=== PATIENT | female | born 1935 | race African-American/Black ===

== ENCOUNTER 2016-12-03 07:44 | Outpatient (CLI) | payer MEDICARE ==
[~2016-12-03] VITALS: Ht 162.6 cm; Wt 95.0 kg
--- NOTE | ~2016-12-03 | HEMODYNAMI ---
PATIENT:JAZMYN DILLON MEDICAL RECORD: [id number] : 37 [id number] ADMISSION DATE: 12/03/16 Generatedon:12/03/201611:05 Patient name: JAZMYN DILLON Patient #: [id number] SSN: : 1935 Date of study: 12/03/2016 Page: Of Hemodynamic Procedure Report Patient Data Patient Demographics Procedure consent was obtained First Name: JAZMYN Gender: Female Last Name: WILMA : 1935 Patient #: [id number] Age: 81 year(s) Race: Black Additional ID: [id number] Contact details [address]: [address] [place] [address] [place] State: [place] City: [place] Zip code: [address] Past Medical History Allergies: No known allergies Admission Admission Data Admission Date: 12/03/2016 Admission Time: 7:44 Weight (lbs.): 209 Weight (kg.): 94.8 Procedure Procedure Types Cath Procedure Peripheral Cath Diagnostic Procedure Cath Peripheral Fistula Fistulagram Single Access Procedure Description Procedure Date Procedure Date: 12/03/2016 Procedure Start Time: 10:11 Procedure Staff Name Function Shashank Mason MD Performing Physician Avni Goodman RT Scrub Marilyn Parnell RN Nurse Jenn Felipe RN Nurse Genesis Cabrera RT Staff Research Associate Genesis Cabrera RT Monitor Procedure Data Cath Procedure Fluoroscopy Diagnostic fluoroscopy Total fluoroscopy Time: 8.9 time: 8.9 min min Diagnostic fluoroscopy Total fluoroscopy dose: 282 dose: 282 mGy mGy Contrast Material Contrast Material Type Amount (ml) Isovue 300 95 Diagnostic catheters Device Type Used For End Catheter Placement Merit Impress KA2 5Fr 65CM catheter Merit UHF Pigtail VESSEL SIZING 5Fr 65CM catheter Procedure Medications Medication Administration Route Dosage Fentanyl I.V. 50 mcg Versed I.V. 1 mg Heparin Bolus I.V. 3000 units Fentanyl I.V. 50 mcg Fentanyl I.V. 50 mcg Versed I.V. 1 mg Hemodynamics Rest Heart Rate: 79 (bpm) Snapshots Pre Cath Intra NCS Post Cath Vital Signs Time Heart Resp SPO2 NIBP (mmHg) Rhythm Pain Sedation Rate (ipm) (%) Status Level (bpm) 9:48:39 12 Measuring NSR 0 (11) 10(A) , No pain 9:49:42 89 19 93 Time NSR 0 (11) 10(A) Exceeded , No pain 9:53:58 82 20 96 173/89(124) NSR 0 (11) 10(A) , No pain 9:58:20 52 28 97 174/76(119) NSR 0 (11) 10(A) , No pain 10:02:41 81 15 98 169/78(134) NSR 0 (11) 10(A) , No pain 10:06:56 82 13 95 167/83(126) NSR 0 (11) 10(A) , No pain 10:11:17 93 14 99 154/71(108) NSR 0 (11) 9(A) , No pain 10:15:37 79 15 100 141/55(95) NSR 0 (11) 9(A) , No pain 10:19:49 75 12 99 149/64(100) NSR 0 (11) 9(A) , No pain 10:24:05 74 16 100 143/66(104) NSR 0 (11) 9(A) , No pain 10:28:17 76 13 99 139/70(99) NSR 0 (11) 9(A) , No pain 10:32:31 73 15 100 137/59(96) NSR 0 (11) 9(A) , No pain 10:36:43 73 14 100 134/64(87) NSR 0 (11) 9(A) , No pain 10:40:53 75 16 100 140/70(112) NSR 0 (11) 9(A) , No pain 10:45:02 74 15 100 152/70(104) NSR 0 (11) 9(A) , No pain 10:49:15 92 14 100 168/77(125) NSR 0 (11) 9(A) , No pain 10:53:36 91 15 100 147/67(107) NSR 0 (11) 9(A) , No pain 10:57:50 80 14 100 150/70(93) NSR 0 (11) 9(A) , No pain 11:02:09 75 14 100 151/60(104) NSR 0 (11) 9(A) , No pain Medications Time Medication Route Dose Verified Delivered Reason Notes Effe ctiveness by by 10:07:35 Fentanyl I.V. 50 Marilyn Marilyn for sedation mcg Parmjit Parnell RN RN 10:07:40 Versed I.V. 1 mg Marilyn Marilyn for sedation Parmjit Parmjit RN RN 10:25:02 Heparin I.V. 3000 Marilyn Marilyn for Bolus units Parmjit Parnell anticoagulation RN RN 10:28:55 Fentanyl I.V. 50 Marilyn Marilyn for sedation mcg Parmjit Parnell RN RN 10:45:06 Fentanyl I.V. 50 Marilyn Marilyn for sedation mcg Parmjit Sandovalaway RN RN 10:45:17 Versed I.V. 1 mg Marilyn Marilyn for sedation Parmjit Parnell RN export documents clerk Log Time Note 9:31:39 Use device set IR Diagnostic 9:33:09 Patient Weight : 209 kg 9:33:24 Cook BENTSON 145cm guide wire opened to sterile field. 9:33:25 Micropuncture VSI 4FR kit opened to sterile field. 9:33:26 St Kwasi 6FR 5cm sheath opened to sterile field. 9:33:27 Sterile Angiographic Pack opened to sterile field. 9:33:28 Bag Decanter opened to sterile field. 9:44:39 Time tracking: Regular hours 9:44:55 Plan of Care:Hemodynamics will remain stable., Cardiac rhythm will remain stable., Comfort level will be maintained., Respiratory function will remain adequate., Patient/ family verbilizes understanding of procedure., Procedure tolerated without complication., Recovers from procedure without complications.. 9:45:01 Patient received from Outpatients to IR Alert and oriented. Tansferred to table in Supine position. 9:45:03 Correct patient and procedure confirmed by team. 9:45:05 Signed procedure consent form obtained from patient. 9:45:07 - 9:45:15 H&P Date Dictated: 12/03/2016 Within 30 days and on chart.. 9:45:17 Pre-procedure instructions explained to patient. 9:45:18 Pre-op teaching completed and patient verbalized understanding. 9:45:22 Family unavailable. 9:45:24 Patient NPO since Midnight. 9:45:40 Patient allergic to No known allergies 9:45:43 Is the patient allergic to Iodine/contrast media? No. 9:45:52 Patient diabetic? Yes. 9:45:59 - 9:46:01 ----Pre-sedation anethsthesia assessment.---- 9:46:04 Previous problem with sedation/anesthesia? No ? 9:46:08 Snore? Yes 9:46:09 Sleep apnea? Yes 9:46:12 Deviated septum? No 9:46:14 Opens mouth fully? Yes 9:46:16 Sticks out tongue? Yes 9:46:22 Airway obstruction? No ? 9:46:26 Dentures? No ? 9:46:28 - 9:46:49 ECG and BP/O2 sat monitors applied to patient. 9:46:50 Vital chart was started 9:46:59 Full Disclosure recording started 9:58:58 - 9:59:19 Terumo 5FR ANGLED 65CM glide catheter opened to sterile field. 9:59:20 Cook [facility] .035 145 glide wire opened to sterile field. 10:04:35 IV patent on arrival in left forearm with 0.9% NaCl at [facility]. 10:06:21 Right Arm area was prepped with chlora-prep and draped in sterile fashion 10:06:24 Alarms reviewed by R. N. 10:06:25 Sharps counted by scrub and verified by R.N. 10:06:33 - 10:06:59 Baseline sample Acquired. 10:07:07 Physician arrived 10:07:29 --------ALL STOP TIME OUT------ 10:07:30 Final Timeout: patient, procedure, and site verified with staff and physician. All members of the team are in agreement. 10:07:35 Fentanyl 50 mcg I.V. was administered by Marilyn Parnell RN; for sedation; 10:07:40 Versed 1 mg I.V. was administered by Marilyn Parnell RN; for sedation; 10:07:42 Physical assessment completed. ASA score P 3 - A patient with severe systemic disease as per Shashank Mason MD. 10:07:48 Sedation plan: IV Moderate Sedation Versed, Fentanyl 10:11:01 Procedure started. 10:11:09 Local anesthetic to right arm with Lidocaine 1% by Shashank Mason MD.INITIAL ACCESS ONLY 10:16:00 Venous access obtained using ultrasound guidance. 10:23:27 Cook MARQUEZ 180 guide wire opened to sterile field. 10:23:39 Terumo 7Fr [place] Destination Sheath opened to sterile field. 10:23:50 A [employer] KA2 5Fr 65CM catheter was advanced over the wire and used for . 10:25:02 Heparin Bolus 3000 units I.V. was administered by Marilyn Parnell RN; for anticoagulation; 10:25:51 BasixTOUCH Inflation Syringe opened to sterile field. 10:27:57 Inflation number: 1 A Cordis Powerflex Pro 5.0 x 40 x 80cm balloon was prepped and advanced across the Undefined1, then inflated to 15 SHARON for 0:10 (min:sec). 10:28:55 Fentanyl 50 mcg I.V. was administered by Marilyn Parnell RN; for sedation; 10:35:23 A [facility] Pigtail VESSEL SIZING 5Fr 65CM catheter was advanced over the wire and used for . 10:39:52 Cordis SMART 12 X 40 X 80 stent was deployed across Undefined1 . 10:42:24 Cook MARQUEZ 260 guide wire opened to sterile field. 10:43:12 Inflation number: 2 A Cordis Powerflex Pro 12.0 X 40 X 80cm balloon was prepped and advanced across the Undefined1, then inflated to 8 SHARON for 0:10 (min:sec). 10:45:06 Fentanyl 50 mcg I.V. was administered by Marilyn Parnell RN; for sedation; 10:45:17 Versed 1 mg I.V. was administered by Marilyn Parnell RN; for sedation; 10:50:24 Procedure ended.(Physican Out) 10:56:57 Fluoroscopy time 08.90 minutes. 10:57:15 Fluoroscopy dose: 282 mGy 10:57:15 Flurop Dose total: 282 10:57:20 Contrast amount:Isovue 300 95ml. 10:57:23 Sharps counted by scrub and verified by R.N. 10:57:25 Procedure and supply charges have been captured, reviewed, submitted an d are correct. 11:05:21 Vital chart was stopped Intervention Summary Intervention Notes Time ActionType Lesion and Equipment Action# Pressure Duration Attributes Used 10:27:57 Inflate Undefined1 Cordis 1 15 00:10 balloon Powerflex Pro 5.0 x 40 x 80cm balloon 10:39:52 Deploy self Undefined1 Cordis 1 expanding SMART 12 stent X 40 X 80 stent 10:43:12 Inflate Undefined1 Cordis 2 8 00:10 balloon Powerflex Pro 12.0 X 40 X 80cm balloon Device Usage Item Name Manufacture Quantity Catalog Hospital Part Current Minima l Lot# / Number Charge Number Stock Stock Serial# Code [facility] 1 [id number] 333282 5 [id number] 145cm guide wire Micropuncture VSI VASCULAR 1 7266V 302765 265510 5 V[address] 4FR kit SOL[address] Kwasi 6FR St Kwasi 1 [id number] 101747 726276 5 2273687 5cm sheath Sterile Cardinal 1 [id number] 600162 344630 5 Angiographic Health Pack Bag Decanter Microtek 1 2001S 651925 96676 047878 5 Medical Inc. Terumo 5FR Terumo 1 CG507 994976 457289 5 ANGLED 65CM glide catheter Cook [employer] 1 [id number] 324972 402769 5 [id number] ROADRUNNER .035 145 glide wire Cook MARQUEZ Cook Medical 1 L45644 136943 507239 5 6269113 180 guide wire Terumo 7Fr Terumo 1 RSR04 848854 545147 922175 5 [place] Destination Sheath Merit Impress Merit 1 [id number] 461086 625875 5 KA2 5Fr 65CM Medical catheter BasixTOUCH Merit 1 BZ1983 206675 783444 094516 5 Inflation Medical Syringe Cordis Cardinal 1 [id number] 438112 973390 400124 5 Powerflex Pro Health 5.0 x 40 x 80cm balloon Merit UHF Merit 1 [id number] 388809 226700 5 Pigtail Medical VESSEL SIZING 5Fr 65CM catheter Cordis SMART Cardinal 1 [id number] 364158 107887 322939 5 [id number] 12 X 40 X 80 Health stent Cook MARQUEZ [place] [facility] 1 [id number] 554663 715560 5 3323759 260 guide wire Cordis Cardinal 1 [id number] 190896 654234 717830 5 Powerflex Pro Health 12.0 X 40 X 80cm balloon Signature Audit [place] Stage Time Signature Unsigned Intra-Procedure 12/03/2016 Genesis Cabrera 11:05:18 AM RT(R) Signatures Monitor : Genesis Cabrera RT Signature : Date : Time : [facility] [address] [place] [address]
[2016-12-03] MEDS ORDERED: LEVEMIR100 U/M1 SC (08:41)
[2016-12-03] MEDS ORDERED: HUMULIN R100 U/ML SC (08:41)
[2016-12-03] MEDS ORDERED: SINGULAIR10 MG PO (08:42)
[2016-12-03] MEDS ORDERED: MIDODRINE HCL5 MG PO (08:42)
[2016-12-03] MEDS ORDERED: LEVOXYL25 MCG PO (08:43)
[2016-12-03] MEDS ORDERED: PACERONE200 MG PO (08:43)
[2016-12-03] MEDS ORDERED: NEPHRO-VITE RX1 TAB PO (08:44)
[2016-12-03] MEDS ORDERED: IPRAT-ALBUT 0.5-3 ML UPD (08:44)
[2016-12-03] MEDS ORDERED: ACIDOPHILUS LAC1 CAP PO (08:45)
[2016-12-03] MEDS ORDERED: ASMANEX0.24 GM INH (08:45)
[2016-12-03 08:59] VITALS: BP 152/89; Ht 162.6 cm; Wt 95.0 kg
[2016-12-03 09:32] LABS: BASOPHILS 0.2 % (0.0-2.0); EOSINOPHILS 5.1 % (0-7); HEMATOCRIT 31.1 % (36.0-48.0); HEMOGLOBIN 9.3 g/dL (12-16); IMMATURE GRANULOCYTES 0.2 % (0-5); LYMPHOCYTES 16.5 % (15-50); MCH 29.1 pg (26.0-34.0); MCHC 29.9 g/dL (31.0-37.0); MCV 97.2 fL (80.0-100.0); MEAN PLATELET VOLUME 9.8 fL (7.4-10.4); MONOCYTES 9.2 % (2-11); NEUTROPHILS 68.8 % (40-80); PLATELET COUNT 264 10x3/uL (130-400); RDW 16.7 % (11.5-14.5); WBC 5.5 10x3/uL (4.8-10.8)
[2016-12-03 09:40] LABS: ANION GAP 13.3 mmol/L (8-16); CALCIUM 9.3 mg/dL (8.5-10.1); CREATININE - SERUM 4.6 mg/dL (0.6-1.3); POTASSIUM - SERUM 3.3 mmol/L (3.5-5.1)
[2016-12-03 09:41] LABS: APTT 35.6 SECONDS (22.8-39.4); PROTIME 13.1 SECONDS (11.6-15.0)
--- NOTE | 2016-12-03 11:25 | NUR ---
RECEIVED FROM IR. VITAL SIGNS STABLE. DENIES PAIN. BRUIT AUDIBLE IN RIGHT ARM. DIET GIVEN. SEE FREQUENT VITAL SIGN SHEET.
--- NOTE | 2016-12-03 13:00 | NUR ---
DISCHARGED HOME VIA .
== END 2016-12-03 13:00 | disposition home or self-care (01) ==
LOC: D.OPS 07:44 → D.RAD 09:30 → D.OPS 09:30
PROVIDERS: Radiology Diagnostic Radiology
DX: T82.868A Thrombosis due to vascular prosthetic devices, implants and grafts, initial encounter (principal); N18.6 End stage renal disease; Z99.2 Dependence on renal dialysis

== ENCOUNTER 2017-04-14 15:33 | Inpatient (IN) | payer MEDICARE ==
[~2017-04-14] VITALS: Ht 162.6 cm; Wt 92.7 kg
--- NOTE | ~2017-04-14 | HEMODYNAMI ---
PATIENT:JAZMYN DILLON MEDICAL RECORD: [id number] : 37 LOCATION:[place] [address] ADMISSION DATE: 04/14/17 Generatedon:04/19/201715:05 Patient name: JAZMYN DILLON Patient #: [id number] SSN: : 1935 Date of study: 04/19/2017 Page: Of Hemodynamic Procedure Report Patient Data Patient Demographics Procedure consent was obtained First Name: JAZMYN Gender: Female Last Name: WILMA : 1935 Patient #: [id number] Age: 82 year(s) Race: Black Additional ID: [id number] Contact details [address]: [address] [place] [address] [place] State: [place] City: [place] Zip code: [address] Past Medical History Allergies: No known allergies Admission Admission Data Admission Date: 04/14/2017 Admission Time: 15:33 Room #: [facility] Procedure Procedure Types Cath Procedure Peripheral Cath Diagnostic Procedure Miscellaneous Procedure Description Procedure Date Procedure Date: 04/19/2017 Procedure Start Time: 14:12 Procedure Staff Name Function Chon Carter MD Performing Physician Nadine Vargas RT Scrub Marilyn Parnell RN Nurse Avni Goodman RT Monitor Procedure Data Cath Procedure Fluoroscopy Diagnostic fluoroscopy Total fluoroscopy Time: 3.6 time: 3.6 min min Diagnostic fluoroscopy Total fluoroscopy dose: 376 dose: 376 mGy mGy Contrast Material Contrast Material Type Amount (ml) Isovue 300 85 Hemodynamics Rest Heart Rate: 70 (bpm) Snapshots Pre Cath Intra NCS Post Cath Vital Signs Time Heart Resp SPO2 NIBP Rhythm Pain Sedation Rate (ipm) (%) (mmHg) Status Level (bpm) 13:55:10 116 20 No Cuff NSR 0 (11) 10(A) , No pain 13:59:02 81 14 100 90/63(78) NSR 0 (11) 10(A) , No pain 14:02:55 103 12 100 108/72(96) NSR 0 (11) 10(A) , No pain 14:07:03 77 12 100 125/48(91) NSR 0 (11) 10(A) , No pain 14:12:02 146 12 94 Measuring NSR 0 (11) 10(A) , No pain 14:12:31 75 13 96 57/31(43) NSR 0 (11) 10(A) , No pain 14:17:30 75 15 Measuring NSR 0 (11) 10(A) , No pain 14:18:35 75 12 91 93/40(65) NSR 0 (11) 10(A) , No pain 14:22:41 73 14 100 102/39(67) NSR 0 (11) 10(A) , No pain 14:26:49 72 11 100 93/39(69) NSR 0 (11) 10(A) , No pain 14:30:53 71 13 100 91/36(64) NSR 0 (11) 10(A) , No pain 14:34:57 70 11 100 87/28(58) NSR 0 (11) 10(A) , No pain 14:38:58 77 10 100 88/35(63) NSR 0 (11) 10(A) , No pain 14:43:00 76 11 100 89/32(58) NSR 0 (11) 10(A) , No pain 14:47:04 77 16 100 95/34(63) NSR 0 (11) 10(A) , No pain 14:51:07 77 14 100 100/36(70) NSR 0 (11) 10(A) , No pain 14:55:15 78 14 100 107/38(70) NSR 0 (11) 10(A) , No pain 14:59:23 79 14 100 118/47(83) NSR 0 (11) 10(A) , No pain 15:03:37 79 16 No Cuff NSR 0 (11) 10(A) , No pain Procedure Log Time Note 13:39:50 Avni Goodman RT (R) (CV) sent for patient. Start room use. 13:39:59 Time tracking: Regular hours 13:40:04 Plan of Care:Hemodynamics will remain stable., Cardiac rhythm will remain stable., Comfort level will be maintained., Respiratory function will remain adequate., Patient/ family verbilizes understanding of procedure., Procedure tolerated without complication., Recovers from procedure without complications.. 13:40:10 Patient received from Med II to IR Alert and oriented. Tansferred to table in Supine position. 13:40:11 Correct patient and procedure confirmed by team. 13:40:13 Signed procedure consent form obtained from patient. 13:40:14 ECG and BP/O2 sat monitors applied to patient. 13:40:15 Full Disclosure recording started 13:40:16 - 13:40:20 H&P Date Dictated: 04/19/2017 Within 30 days and on chart.. 13:40:20 Pre-procedure instructions explained to patient. 13:40:21 Pre-op teaching completed and patient verbalized understanding. 13:40:22 Family unavailable. 13:40:24 Patient NPO since Midnight. 13:40:26 - 13:40:42 SEE ANESTHESIA NOTE FOR PRE PROCDURE TIVA 13:40:44 - 13:40:48 Use device set IR Diagnostic 13:40:49 Bag Decanter opened to sterile field. 13:40:52 Sterile Angiographic Pack opened to sterile field. 13:54:20 Vital chart was started 13:54:21 Baseline sample Acquired. 13:59:09 RUY HERE FROM ANESTHESIA 14:09:10 Sharps counted by scrub and verified by R.N. 14:09:18 Right Arm area was prepped with chlora-prep and draped in sterile fashion 14:: Physician arrived 14::53 --------ALL STOP TIME OUT------ 14::53 Final Timeout: patient, procedure, and site verified with staff and physician. All members of the team are in agreement. 14:10:55 Right Arm site verified by team. 14:11:02 Physical assessment completed. ASA score P 4 - A patient with severe systemic disease that is a constant threat to life as per Chon Carter MD. 14:11:26 Sedation plan: IV Moderate Sedation Propofol 14:11:40 Procedure started. 14:12:06 Local anesthetic to right arm with Lidocaine 1% by Chon Carter MD.INITIAL ACCESS ONLY 14:13:45 Ophis Vape DOC .035 guide wire opened to sterile field. 14:13:45 Micropuncture VSI 4FR kit opened to sterile field. 14:13:46 Terumo 5FR ANGLED 65CM glide catheter opened to sterile field. 14:13:47 Terumo 5Fr Candor Sheath opened to sterile field. 14:18:53 Terumo 6Fr Candor Sheath opened to sterile field. 14:21:11 Terumo ANGLE 180L glide wire opened to sterile field. 14:21:18 Terumo TORQUE DEVICE PLASTIC .038 opened to sterile field. 14:24:36 BasixTOUCH Inflation Syringe opened to sterile field. 14:24:55 Cook MARQUEZ 180 guide wire opened to sterile field. 14:26:50 Inflation number: 1 A Cordis Powerflex Pro 8.0 x 40 x 80cm balloon was prepped and advanced across the Undefined1, then inflated 14:34:45 Inflation number: 2 A Cordis Powerflex Pro 10.0 x 40 x 80cm balloon was prepped and advanced across the Undefined1, then inflated 14:52:21 3.0 Vicryl Single Pack [id number] opened to sterile field. 14:54:54 Procedure ended.(Physican Out) 14:55:05 Fluoroscopy time 03.60 minutes. 14:55:10 Fluoroscopy dose: 376 mGy 14:55:10 Flurop Dose total: 376 14:56:22 Sharps counted by scrub and verified by R.N. 14:56:23 Insertion/operative site no bleeding no hematoma. 14:56:29 Post-op/insertion site Right Fistula dressed using a 4 x 4 and Tegaderm . 14:56:37 Post right arm:stable 14:56:41 Post-procedure physical assessment completed. ASA score P 4 - A patient with severe systemic disease that is a constant threat to life as per Chon Carter MD. 14:56:51 Post procedure rhythm: unchanged. 14:56:52 Patient needs reinforcement of post procedure teaching. 14:56:53 Procedure and supply charges have been captured, reviewed, submitted an d are correct. 14:57:07 SEE ANESTHESIA NOTE FOR POST PROCEDURE TIVA 14:59:12 Contrast amount:Isovue 300 85ml. 15:04:16 Report given to Med II. 15:04:20 Patient transfered to Med II with Bed. 15:05:15 Vital chart was stopped Intervention Summary Intervention Notes Time ActionType Lesion and Equipment Action# Pressure Duration Attributes Used 14:26:50 Inflate Undefined1 Cordis 1 0 00:00 balloon Powerflex Pro 8.0 x 40 x 80cm balloon 14:34:45 Inflate Undefined1 Cordis 2 0 00:00 balloon Powerflex Pro 10.0 x 40 x 80cm balloon Device Usage Item Name Manufacture Quantity Catalog Hospital Part Current Minima l Lot# / Number Charge Number Stock Stock Serial# Code Bag [facility] Microtek 1 2002S [id number] 47992 441529 5 Medical Inc. Sterile Cardinal 1 [id number] 341874 379515 5 Angiographic Health Pack Cook DOC .035 Cook Medical 1 [id number] 518532 333440 5 guide wire Micropuncture VSI VASCULAR 1 7266V 715375 246452 5 VSI 4FR kit SOLUTIONS Terumo 5FR Terumo 1 CG507 326220 503545 5 ANGLED 65CM glide catheter Terumo 5Fr Terumo 1 [id number] 591151 950078 571943 40 [place] Sheath Terumo 6Fr Terumo 1 [id number] 519853 665523 458374 40 Candor Sheath Terumo ANGLE Terumo 1 [id number] 552074 109582 385453 5 180L glide wire Terumo TORQUE [place] 1 TD01 867270 953818 525208 5 DEVICE Scientific PLASTIC .038 BasixTOUCH Merit 1 [id number] 379199 971969 541629 5 Inflation Medical Syringe Cook [facility] 1 X30051 009842 812521 5 [id number] 180 guide wire Cordis Cardinal 1 [id number] 175513 011521 932850 5 Powerflex Pro Health 8.0 x 40 x 80cm balloon Cordis Cardinal 1 [id number] 371620 532641 458160 5 Powerflex Pro Health 10.0 x 40 x 80cm balloon 3.0 Vicryl Ethicon 1 [id number] 813000 547184 844767 5 Single Pack [id number] Signature Audit [place] Stage Time Signature Unsigned Intra-Procedure 04/19/2017 Avni 3:05:12 PM Maxine RT (R) (CV) Signatures Monitor : Avni Signature : Maxine RT Date : Time : [place] [address] [place] [address]
--- NOTE | ~2017-04-14 | DS ---
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 She was admitted and seen by interventional radiology. She was to have her procedure, but unfortunately was given apple juice by the nurse and had to have her procedure canceled until Wednesday. She had a 10-mm balloon angioplasty and her access is open and will use it prior to discharge. She is alert and oriented times 2, does note that she transfers and dialyzes at the [facility] on Mondays, Wednesdays and Fridays. Did get the year correct but the day, she was unaware of the specific day but it was March and she has been in the hospital over the weekend. Normocephalic, atraumatic, regular rhythm, S1 and S2, access was open with good thrill. Trace lower extremity edema. We will continue her home medications as previous to admission with no medical changes and they are reviewable in the chart. We will contact her dialysis facility and the dialysis nurse today and we will remove her Trialysis catheter as well. Stable on discharge. Renal diet. TRANSINT:[id number] Voice Confirmation ID: [id number] DOCUMENT ID: [id number] ROSALVA DUGGAN MD CC: [id number] DICTATION DATE: 04/20/17 0753 REGULATION SUPERVISOR: 04/20/17 0815 DIS IN 04/20/17 [place] [id number] [place] [address]
[~2017-04-14 15:33] MED LIST: ACIDOPHILUS LAC1 CAP PO; ASMANEX0.24 GM INH; HUMULIN R100 U/ML SC; IPRAT-ALBUT 0.5-3 ML UPD; LEVEMIR100 U/M1 SC; LEVOXYL25 MCG PO; MIDODRINE HCL5 MG PO; NEPHRO-VITE RX1 TAB PO; PACERONE200 MG PO; SINGULAIR10 MG PO
--- NOTE | 2017-04-14 16:25 | NUR ---
ALERT AND ORIENTED X4. ARRIVE TO ROOM VIA WHEELCHAIR FROM [facility]. DIRECT ADMIT DUE TO RT ARM FISTULA CLOTTED. MAX ASSIST TO BED FROM WHEELCHAIR. WOUNDS ON LOWER LEGS BILATERALLY DRESSINGS CLEAN DRY INTACT. CONTINUE ADMISSION PROCESS. BED LOCKED AND LOW. CALL LIGHT IN REACH. TWO SIDERAILS UP. REFUSE SCDs DUE TO WOUNDS ON LEGS.
[2017-04-14] MEDS ORDERED: PHOSLO667 MG PO (16:32)
[2017-04-14] MEDS ORDERED: RENVELA800 MG PO (16:32)
[2017-04-14] MEDS ORDERED: HYDROCODONE-APA1 TAB PO (16:33)
[2017-04-14 17:04] LABS: BASOPHILS 0.3 % (0-2); EOSINOPHILS 3.1 % (0-7); HEMATOCRIT 29.6 % (36.0-48.0); HEMOGLOBIN 8.9 g/dL (12-16); IMMATURE GRANULOCYTES 0.3 % (0-5); LYMPHOCYTES 13.1 % (15-50); MCH 28.7 pg (26.0-34.0); MCHC 30.1 g/dL (31.0-37.0); MCV 95.5 fL (80.0-100.0); MEAN PLATELET VOLUME 9.8 fL (7.4-10.4); NEUTROPHILS 78.2 % (40-80); RDW 16.7 % (11.5-14.5); WBC 7.5 10x3/uL (4.8-10.8)
[2017-04-14 17:09] LABS: PLATELET COUNT 348 10x3/uL (130-400)
[2017-04-14 17:20] LABS: INR 1.29 (0.85-1.17); PROTIME 15.9 SECONDS (11.6-15.0)
[2017-04-14 17:52] VITALS: BP 124/43; BMI 35.2
[2017-04-14 18:27] LABS: ANION GAP 27.5 mmol/L (8-16); CALCIUM 8.8 mg/dL (8.5-10.1); CARBON DIOXIDE 19.1 mmol/L (21.0-32.0); CREATININE - SERUM 13.9 mg/dL (0.6-1.3); PHOSPHOROUS 7.7 mg/dL (2.5-4.9)
[2017-04-14 18:37] LABS: POTASSIUM - SERUM 7.6 mmol/L (3.5-5.1)
--- NOTE | 2017-04-14 18:44 | NUR ---
CRITICAL LABS K-7.6, BUN-133, CR-13.9. [place], RENAL TIRE BUILDER OPERATOR PAGED. CONTINUE PLAN OF CARE AND SAFETY PRECAUTIONS.
[2017-04-14 19:00] VITALS: BP 85/59
--- NOTE | 2017-04-14 23:00 | NUR ---
REC'D SHIFT REPORT FROM [facility] NURSE GAVI. PTS POTASSIUM WAS CRITICAL AT 7.4 AND MEDS HAVE BEEN ORDERED FROM 1944 HOWEVER THERE WAS NO PIV ACCESS AND OTHERS WERENT GIVEN. PT NOW HAS A GROIN TRIALYSIS CATHETER AND IS RECIEVING DIALYSIS. WILL HOLD ON MEDS TO SEE WHAT POTASSIUM COMES DOWN TO AND CONTINUE WITH TX.
[2017-04-15] VITALS: BP 132/68
--- NOTE | 2017-04-15 01:32 | NUR ---
CALL LIGHT IN REACH, WILL CONTINUE WITH PLAN OF CARE.
[2017-04-15 04:00] VITALS: BP 111/61
[2017-04-15 05:16] LABS: BASOPHILS 0.1 % (0-2); EOSINOPHILS 1.9 % (0-7); HEMOGLOBIN 7.6 g/dL (12-16); IMMATURE GRANULOCYTES 0.3 % (0-5); LYMPHOCYTES 6.2 % (15-50); MCH 28.5 pg (26.0-34.0); MCHC 30.4 g/dL (31.0-37.0); MCV 93.6 fL (80.0-100.0); MEAN PLATELET VOLUME 9.7 fL (7.4-10.4); MONOCYTES 6.2 % (2-11); NEUTROPHILS 85.3 % (40-80); PLATELET COUNT 321 10x3/uL (130-400); RBC 2.67 10x6/uL (4.00-5.40); RDW 16.6 % (11.5-14.5); WBC 7.4 10x3/uL (4.8-10.8)
[2017-04-15 05:52] LABS: ANION GAP 17.5 mmol/L (8-16); CARBON DIOXIDE 26.9 mmol/L (21.0-32.0); CREATININE - SERUM 8.5 mg/dL (0.6-1.3); POTASSIUM - SERUM 4.4 mmol/L (3.5-5.1)
--- NOTE | 2017-04-15 07:34 | NUR ---
PT LAYING TO R SIDE SLEEPING NO S/S DISTRESS RR EVEN AND UNLABORED. WILL CONT TO MONITOR.
[2017-04-15 08:00] VITALS: BP 140/61
--- NOTE | 2017-04-15 08:00 | NUR ---
PT HAS NPO ORDER IN THE COMPUTER?? NO ORDERED PROCEDURE/TEST THAT REQUIRES HER TO BE NPO. NOTHING IN DRS NOTES SAYS ANYTHING ABOUT ANY TYPE OF PROCEDURE TO BE NPO FOR TODAY. POSSIBLE SC FOR TOMORROW BUT NOTHING FOR TODAY?? [facility] B[employer]OP SAID SOMEONE FROM [employer] CALLED AND SAID TO HOLD PT NPO FOR NOW. WILL DO.
--- NOTE | 2017-04-15 09:08 | OP ---
PATIENT NAME: JAZMYN DILLON MEDICAL RECORD: [id number] :37 LOCATION:D. D.2135 ADMISSION DATE:04/14/17 SURGEON: SUKHWINDER RO MD DATE OF OPERATION: 04/14/2017 PREOPERATIVE DIAGNOSES: 1. End-stage renal disease without chronic access for hemodialysis. 2. Hyperkalemia, in need of emergent dialysis. POSTOPERATIVE DIAGNOSES: 1. End-stage renal disease without chronic access for hemodialysis. 2. Hyperkalemia, in need of emergent dialysis. PROCEDURE: Failed attempts at placement of a dialysis catheter at the right neck. Placement of 20-Chinese Trialysis catheter, which is a non-tunneled, non-cuffed hemodialysis catheter at the left groin site. OPERATIVE COURSE: The patient was seen in her room. The entire procedure was performed in the presence of a female nurse. The patient was positioned in the Trendelenburg position. The right neck was sterilely prepped and draped. A local anesthetic was used to infiltrate the skin and subcutaneous tissues at the base of the right neck. I attempted to access the right subclavian vein in an antegrade fashion utilizing a supraclavicular approach. The guidewire would not thread. I was able to access the internal jugular vein, but here again, the guidewire would not thread. This approach was abandoned. Attention was then turned to the left groin. The left groin was sterilely prepped and draped. I avoided the right groin as the patient has had some type of operation on that side. After sterile prepped and draped, a local anesthetic was used to infiltrate the skin and subcutaneous tissues at the base of the left groin. The left common femoral vein was percutaneously accessed in an antegrade fashion. A guidewire passed easily. A small skin lizett was accomplished. A vessel dilator was used to dilate a subcutaneous tract. A 20 cm triple lumen dialysis catheter was inserted to the hub. It was sutured in place times 3. All lumens flushed easily and aspirated dark, nonpulsatile blood. A stat portable chest x-ray is pending. This is to rule out pneumothorax due to the attempts at the right neck. TRANSINT:[id number] Voice Confirmation ID: [id number] DOCUMENT ID: [id number] SUKHWINDER RO MD at 0908 CC: [id number] DICTATION DATE: 04/14/17 2157 NEW ACCOUNT INTERVIEWER: 04/15/17 0051 ADM IN [facility] [address] [id number]
--- NOTE | 2017-04-15 11:30 | NUR ---
PT ORDERED TO HAVE PRBC TODAY ON DIALYSIS. CONSENT OBTAINED. PLACED ON CHART. PT IS ALERT AND ORIENTED X4
[2017-04-15 12:00] VITALS: BP 111/50
[2017-04-15 13:55] VITALS: Ht 162.6 cm; Wt 92.7 kg
--- NOTE | 2017-04-15 15:09 | NUR ---
TALKED WITH DR DUGGAN ABOUT IF PT CAN EAT OR IF WE STILL NEED TO HOLD HER NPO?? HE SAID THAT HE THINKS SPECIALS IS GOING TO DO HER PROCEDURE TOMORROW SO GO AHEAD AND LET HER EAT. WILL DO. PT C/O HUNGER WILL GIVE HER A RENAL TRAY.
[2017-04-15 15:36] VITALS: BP 98/37
--- NOTE | 2017-04-15 18:23 | NUR ---
PT SITTING UP IN BED SLEEPING NO S/S DISTRESS NOTED RR EVEN AND UNLABORED
[2017-04-15 19:00] VITALS: BP 114/72
--- NOTE | 2017-04-15 19:23 | NUR ---
PT IN BED. REQUESTS ASSISTANCE WITH EATING. DENIES FURTHER NEEDS WILL CONTINUE TO MONITOR
[2017-04-16] VITALS: BP 110/50
--- NOTE | 2017-04-16 04:07 | NUR ---
FAST FOOD SHIFT LEAD AT BEDSIDE TO OBTAIN VITALS, CALL LIGHT IN REACH. WILL CONTINUE WITH PLAN OF CARE.
[2017-04-16 05:01] LABS: BASOPHILS 0.1 % (0-2); EOSINOPHILS 0.9 % (0-7); HEMATOCRIT 25.1 % (36.0-48.0); IMMATURE GRANULOCYTES 0.1 % (0-5); LYMPHOCYTES 7.6 % (15-50); MCHC 29.9 g/dL (31.0-37.0); MCV 93.7 fL (80.0-100.0); MEAN PLATELET VOLUME 8.7 fL (7.4-10.4); MONOCYTES 8.8 % (2-11); NEUTROPHILS 82.5 % (40-80); PLATELET COUNT 306 10x3/uL (130-400); RBC 2.68 10x6/uL (4.00-5.40); RDW 16.7 % (11.5-14.5); WBC 7.5 10x3/uL (4.8-10.8)
[2017-04-16 05:05] LABS: HEMOGLOBIN 7.5 g/dL (12-16)
[2017-04-16 05:09] LABS: INR 1.28 (0.85-1.17); PROTIME 15.9 SECONDS (11.6-15.0)
[2017-04-16 05:10] LABS: APTT 39.9 SECONDS (22.8-39.4)
[2017-04-16 05:15] LABS: ANION GAP 20.3 mmol/L (8-16); CALCIUM 8.5 mg/dL (8.5-10.1); CREATININE - SERUM 10.7 mg/dL (0.6-1.3); PHOSPHOROUS 7.2 mg/dL (2.5-4.9); POTASSIUM - SERUM 5.3 mmol/L (3.5-5.1)
[2017-04-16 08:00] VITALS: BP 128/46
--- NOTE | 2017-04-16 08:00 | NUR ---
INTRODUCED MYSELF TO PT PRIMARY RN FOR TODAYS SHIFT. PT A&O RESTING QUIETLY IN BED WATCHING TV. PT HAS BILAT DRSGS TO LEGS THAT SHE STATES NEEDS CHANGED FROM [facility]. UPON UNDRESSING THEM NOTED ULCERS TO BOTH CALVES. LEFT CALF- BEDDING BEEFY RED IN SPOT WITH YELLOWISH BROWN SLOUGHING IN SOME AREAS. CLEANSED WITH WOUND CLEANSER APPLIED ADAPTIC AND NONADHERENT GUAZE THEN WRAPPED WITH KERLIX. RIGHT CALF/ANKLE- WOUND BEDDING BEFFY RED, DEEPER THAN LEFT NO YELLOW EXUDATE OR DRAINAGE NOTED, CLEANSED WITH WOUND CLEANSER, APPLIED ADAPTIC AND NONADHERENT GUAZE THEN ABDOMINAL PAD FOR CUSHION AND WRAPPED WITH KERLIX. -NEED ACTUAL WOUND CARE NURSE ASSESSMENT AND ORDERS. ORDER FOR CONSULT PLACED. ELEVATED BILAT FEEL AND HEELS ON PILLOW TO HELP REDUCE FRICTION OR PRESSURE. PT VOICED THANKS AND APPRICIATION. PT IS CURRENTLY NPO FOR PROCEDURE LATER TODAY. PT DENIES ANY FURTHER NEEDS AT THIS TIME. CL IN REACH, BED IN LOWEST, SIDE RAILS X2. WILL CPOC.
--- NOTE | 2017-04-16 10:00 | NUR ---
PT LEAVING UNIT FOR DIALYSIS. PT DENIES ANY CURRENT NEEDS. WILL CTM.
--- NOTE | 2017-04-16 13:30 | NUR ---
BROUGHT BOTH UNITS OF PRBCS TO DIALYSIS WHERE THEY TRANFUSED THEM. NO ISSUES OR REACTIONS NOTED. WILL CPOC.
[2017-04-16 14:22] LABS: BASOPHILS 0.2 % (0-2); HEMATOCRIT 31.5 % (36.0-48.0); HEMOGLOBIN 9.8 g/dL (12-16); IMMATURE GRANULOCYTES 0.2 % (0-5); MCH 28.7 pg (26.0-34.0); MCHC 31.1 g/dL (31.0-37.0); MCV 92.1 fL (80.0-100.0); MEAN PLATELET VOLUME 9.2 fL (7.4-10.4); MONOCYTES 7.2 % (2-11); NEUTROPHILS 84.4 % (40-80); PLATELET COUNT 310 10x3/uL (130-400); RBC 3.42 10x6/uL (4.00-5.40); RDW 16.2 % (11.5-14.5); WBC 8.3 10x3/uL (4.8-10.8)
[2017-04-16 14:30] LABS: INR 1.15 (0.85-1.17); PROTIME 14.6 SECONDS (11.6-15.0)
[2017-04-16 14:34] LABS: ANION GAP 15.7 mmol/L (8-16); CALCIUM 8.6 mg/dL (8.5-10.1); CARBON DIOXIDE 26.8 mmol/L (21.0-32.0)
--- NOTE | 2017-04-16 14:34 | NUR ---
PT BACK FROM DIALYSIS. CONSENTS OBTAINED FOR PROCEDURE WITH THIS AFTERNOON. EKG COMPLETED AND NORMAL. STAT BLOOD DRAWS COMPLETED AND SENT TO LAB. PT C/O PAIN IN BILAT LEGS PROVIDED WITH PRN PAIN MEDS. WILL CTM.
[2017-04-16 14:37] LABS: CREATININE - SERUM 5.2 mg/dL (0.6-1.3); POTASSIUM - SERUM 3.5 mmol/L (3.5-5.1)
--- NOTE | 2017-04-16 14:51 | NUR ---
PT LEAVING FOR PROCEDURE NOW.
--- NOTE | 2017-04-16 15:30 | NUR ---
PT RETURNED FROM PROCEDURE AND WAS NOT ABLE TO HAVE IT DONE R/T BLOOD SUGAR BEING SO LOW AT 69 AND THEN ANOTHER NURSE GIVING HER APPLE JUICE TO HELP RAISE IT. ANESTHESIA DIDNT FEEL COMFORTABLE WITH DOING IT AFTER SHE DRANK IT. ON FLOOR AND AWARE AND PROCEDURE WILL BE PLANNED FOR WEDNESDAY. PT VOICED UNDERSTANDING AND IS OKAY WITH IT. PTS BLOOD SUGAR UP TO 99 NOW. PT ASYMPTOMATIC AND DENIES ANY FURTHER NEEDS AT THIS TIME. CL IN REACH, BED IN LOWEST, SIDE RAILS X2. WILL CPOC.
[2017-04-16 19:00] VITALS: BP 148/67
[2017-04-17] VITALS: BP 155/73
[2017-04-17 04:00] VITALS: BP 137/62
[2017-04-17 06:27] LABS: BASOPHILS 0.1 % (0-2); EOSINOPHILS 1.3 % (0-7); HEMATOCRIT 32.8 % (36.0-48.0); IMMATURE GRANULOCYTES 0.1 % (0-5); LYMPHOCYTES 9.5 % (15-50); MCH 28.6 pg (26.0-34.0); MCHC 30.5 g/dL (31.0-37.0); MCV 93.7 fL (80.0-100.0); MEAN PLATELET VOLUME 9.4 fL (7.4-10.4); MONOCYTES 8.7 % (2-11); NEUTROPHILS 80.3 % (40-80); PLATELET COUNT 314 10x3/uL (130-400); RDW 17.1 % (11.5-14.5); WBC 7.5 10x3/uL (4.8-10.8)
[2017-04-17 06:46] LABS: ANION GAP 15.8 mmol/L (8-16); CALCIUM 8.9 mg/dL (8.5-10.1); CARBON DIOXIDE 28.2 mmol/L (21.0-32.0); PHOSPHOROUS 5.9 mg/dL (2.5-4.9)
[2017-04-17 06:47] LABS: CREATININE - SERUM 6.9 mg/dL (0.6-1.3)
--- NOTE | 2017-04-17 08:09 | NUR ---
0715- AM ROUNDING- RECEIVED REPORT FROM FOAM TANK LAMINATOR NURSE CLARITA. PT IS CURRENTLY LAYING IN BED ON BACK WITH EYES OPEN RESTING. PT IS LEGALLY BLIND PER REPORT BUT LOOKS DIRECTLY IN MY DIRECTION WHEN SPEAKING TO PT. 0N 02 AT 2L VIA NC. NO MONITOR. LEFT GROIN TRIAYLIS SEEN. RESERVE RIGHT ARM FOR AVF. NO NEED AT THIS CURRENT TIME. PT ASKED IF THERE WAS AN ENVELOPE ON FLOOR, THIS NURSE LOOKED AND NO ENVELOPE SEEN. NO FURTHER NEED AT THIS TIME. WILL CONTINUE TO MONITOR AND CONTINUE WITH PLAN OF CARE.
[2017-04-17 08:49] VITALS: BP 134/50
[2017-04-17 13:18] VITALS: BP 142/58
--- NOTE | 2017-04-17 15:00 | NUR ---
PT GIVEN PAIN MEDICATION (NORCO ORDERED) FOR PT C/O 10/10 PAIN COMING FROM BILATERAL LEGS. CALL LIGHT IS IN REACH.
--- NOTE | 2017-04-17 16:42 | NUR ---
UPON CHECKING PTS BS, PT KEEPS STATING THAT THE BED IS MOVING. I INFORMED PT THAT HER BED IS NOT MOVING. PT APPEARS TO BE CONFUSED. BED ALARM IS ON AND CALL LIGHT IS IN REACH. WILL CONTINUE TO MONITOR.
--- NOTE | 2017-04-17 17:30 | NUR ---
1700- PT ASSISTED UP IN BED BY THIS NURSE AND KEMAL RINCON. PT IS NOW SITTING UP IN BED WITH EYES OPEN. SERGEY IS SITUATING PTS DINNER TRAY SO PT CAN EAT DINNER COMFORTABLY. BED ALARM IS ON (PT IS CONFUSED) AND CALL LIGHT IS IN REACH. WILL CONTINUE TO MONITOR.
--- NOTE | 2017-04-17 19:44 | NUR ---
RESUMED CARE OF PT, LYING IN BED RESPIRATIONS EVEN AND UNLABORED ON 2LPM VIA NC. LINENS CHANGED AND REPOSITIONED IN BED. LEFT GROIN TRIALYSIS SALINE LOCKED. NO NEEDS AT THIS TIME, CALL LIGHT IN REACH. WILL CONTINUE TO MONITOR. SEE NURSE ASSESSMENT.
[2017-04-17 20:23] VITALS: BP 115/49
--- NOTE | 2017-04-18 00:54 | NUR ---
LEFT LEG DRESSING CHANGED, PULLED BACK UP IN BED. BED ALARM ON. WILL CONTINUE TO MONITOR. CALL LIGHT IN REACH.
[2017-04-18 01:29] VITALS: BP 107/37
[2017-04-18 04:54] LABS: BASOPHILS 0.1 % (0-2); EOSINOPHILS 3.2 % (0-7); HEMATOCRIT 33.2 % (36.0-48.0); HEMOGLOBIN 10.3 g/dL (12-16); IMMATURE GRANULOCYTES 0.3 % (0-5); LYMPHOCYTES 11.7 % (15-50); MCH 28.9 pg (26.0-34.0); MEAN PLATELET VOLUME 9.3 fL (7.4-10.4); MONOCYTES 10.1 % (2-11); NEUTROPHILS 74.6 % (40-80); PLATELET COUNT 325 10x3/uL (130-400); RBC 3.57 10x6/uL (4.00-5.40); RDW 16.5 % (11.5-14.5); WBC 7.8 10x3/uL (4.8-10.8)
[2017-04-18 05:03] LABS: ANION GAP 17.3 mmol/L (8-16); CALCIUM 8.9 mg/dL (8.5-10.1); CARBON DIOXIDE 26.7 mmol/L (21.0-32.0); CREATININE - SERUM 8.3 mg/dL (0.6-1.3); PHOSPHOROUS 6.9 mg/dL (2.5-4.9)
[2017-04-18 05:44] VITALS: BP 139/59
--- NOTE | 2017-04-18 06:15 | NUR ---
NO CHANGES FROM PREVIOUS ASSESSMENT. CALL LIGHT IN REACH. WILL CONTINUE TO MONITOR.
--- NOTE | 2017-04-18 07:32 | NUR ---
AM ROUNDING- RECEIVED REPORT FROM SALES COMPENSATION ANALYST NURSE BROOKS. PT IS CURRENTLY LAYING IN BED ON RIGHT SIDE WITH EYES CLOSED RESTING RECEIVING BREATHING TX CURRENTLY. JULIA, WITH RESP STATES HE TURNED PTS 02 DOWN TO 1L DUE TO PTS O2 SAT BEING 99%. NO MONITOR. RESERVE LEFT ARM FOR AVF THAT IS CURRENTLY NOT IN USE. LEFT GROIN TRIALYSIS SEEN. BILATERAL DRESSINGS SEEN TO LE. NO NEED AT THIS TIME. BED IS IN LOW POSITION, SIDE RAILS ARE UP X2, AND CALL LIGHT IS IN REACH. WILL CONTINUE TO MONITOR AND CONTINUE WITH PLAN OF CARE.
[2017-04-18 07:58] VITALS: BP 103/39
[2017-04-18 11:54] VITALS: BP 123/55
--- NOTE | 2017-04-18 13:48 | NUR ---
SPOKE WITH JHONNY ZUÑIGA NP. RECEIVED NEW ORDERS. ORDERS PUT IN GIVEN.
--- NOTE | 2017-04-18 14:51 | NUR ---
KATIE ZUÑIGA NP REGARDING ORDERS FOR TWO DIFFERNT CONSENTS SCHEDULED FOR TOMORROW. WILL AWAIT CALLBACK FOR CLARIFICATION.
--- NOTE | 2017-04-18 15:26 | NUR ---
KATIE ZUÑIGA NP FOR SECOND TIME TO SEE ABOUT CLARIFYING PTS CONSENTS FOR PROCEDURE. WILL AWAIT CALLBACK.
--- NOTE | 2017-04-18 15:42 | NUR ---
RECIEVED CALLBACK FROM JHONNY ZUÑIGA NP. INFORMED JHONNY ZUÑIGA NP THAT THERE IS ANOTHER ORDER TO OBTAIN CONSENT FOR PROCEDURE TOMORROW THAT IS DIFFERNT FROM THE ONE SHE GAVE ME (TELEPHONE ORDERS EARLIER ON SHIFT) AND THAT THE OTHER ONE WAS PER DR. MAJANO. JHONNY ZUÑIGA NP STATES TO D/C ORDER SHE GAVE AND DO EXACT ORDER PER DR. MAJANO. WILL DO ORDERED.
--- NOTE | 2017-04-18 15:50 | NUR ---
PT IS CONFUSED ON SHIFT TODAY. THIS NURSE DOES NOT FEEL COMFORTABLE HAVING PT SIGN CONSENT FOR PROCEDURE. ATTEMPTED TO CALL SON. NO ANSWER. THIS NURSE LEFT VOICEMAIL. WILL AWAIT CALLBACK.
[2017-04-18 16:12] VITALS: BP 137/65
--- NOTE | 2017-04-18 16:18 | NUR ---
EDWIN BETTS (PTS SON) CALLED BACK. I INFORMED PTS SON THAT PT IS CONFUSED AND UNABLE TO SIGN CONSENTS FOR PROCEDURE TOMORROW. EDWIN STATES THAT PT HAS NO AND IS NEXT OF [place]. TELEPHONE ORDERS RECIEVED FOR CONSENTS FOR PTS PROCEDURE. KAITY HOLLOWAY WITNESSED TELEPHONE CONSENTS. CONSENTS FILLED OUT AND WITNESS BY KAITY HOLLOWAY. CONSENTS PLACED IN CHART.
--- NOTE | 2017-04-18 16:40 | NUR ---
ASHOK BARRY CHECKED PTS BS WHICH IS 114. PT APPEARS TO BE VERY LETHARGIC. KAITY HOLLOWAY AND IN ROOM TRYING TO GET PT TO WAKE UP AND OPEN EYES. PT OPEN EYES AND STATES SHE IS TIRED AND DOES NOT WANT TO EAT DINNER. KAITY HOLLOWAY GOT PT TO DRINK APPLE JUICE. BED ALARM IS ON. BED IS IN LOW POSITION, SIDE RAILS ARE UP X2, AND CALL LIGHT IS IN REACH.
--- NOTE | 2017-04-18 18:11 | NUR ---
WENT TO CHECK ON PT. PT IS RESTING WITH EYES CLOSED. PT IS VERY LETHARGIC, HARD TO WAKE UP AT TIMES. THIS NURSE GOT PT TO WAKE UP SOME TO EAT HALF OF DESSERT FROM DINNER. PT STATES "I JUST WANT TO SLEEP, I JUST WANT TO , IM TIRED OF THIS PAIN AND SUFFERING". THIS NURSE STAYED AT BEDSIDE TO COMFORT PT. I ASKED PT IF SHE WOULD LIKE SOMETHING FOR PAIN. PT REPLIES "YES". WILL SEE WHAT PT HAS FOR PAIN AND TX ORDERED.
--- NOTE | 2017-04-18 18:17 | NUR ---
ASHOK BARRY CHANGED DRESSING TO RIGHT LOWER EXTREMITY. SEE NURSES NOTES FOR DESCRIPTION.
--- NOTE | 2017-04-18 18:18 | NUR ---
PER NURSING JUDGMENT, PT HAS BEEN VERY LETHARGIC ON SHIFT TODAY. THIS NURSE DOES NOT FEEL COMFORTALBE GIVING PT PAIN MEDICATION DUE TO PT BEING VERY LETHARGIC. WILL HOLD THIS AND PASS THIS IN REPORT TO NEXT SHIFT.
--- NOTE | 2017-04-18 18:37 | NUR ---
PT IS VERY LETHARGIC. PT AROUSES TO LOUD SPEECH. PT IS LAYING IN BED (SITTING UP WITH HOB ELEVATED AT 30 DEGREES) WITH EYES CLOSED RESTING. BED ALARM IS ON. BED IS IN LOW POSITION, SIDE RAILS ARE UP X2, AND CALL LIGHT IS IN REACH. WILL CONTINUE TO MONITOR.
--- NOTE | 2017-04-18 18:46 | NUR ---
Pt has wound to posterior lower leg/ankle with loose dressing, changed with minimal c/o pain. Wound is approx 9cm x 5.5cm, (narrowing to approx 1.8cm wide at ankle). Wound bed is 90% pink, with 10% yellow slough. Depth is < 0.1cm to area above ankle, but area over tendon at ankle is approx 1.6cm deep. Wound has even borders with no edema, no surrounding erythema, no excoriation to surrounding area. Drainage is serosanguinous, scant amt, with mild odor. Wound was cleaned with wound cleanser, covered with 4x4 gauze, wrapped with Kerlix and taped to secure.
[2017-04-18 20:00] VITALS: BP 137/67
--- NOTE | 2017-04-18 20:04 | NUR ---
CHECK PT'S FSBS, GLUCOSE METER READIN, REPORT TO CHARGE. RECHECK PT'S FSBS, THE READING IS 581, CHARGE NURSE CALL LAB COME TO CHECK PT'S FSBS: 164.
--- NOTE | 2017-04-18 22:42 | NUR ---
PT REST QUIETLY IN BED, EYE CLOSE, BED LOW. CONTINUE MONITOR CLOSELY.
--- NOTE | 2017-04-18 23:18 | NUR ---
HEALTHCARE EDUCATOR AT BEDSIDE TO OBTAIN VITALS, CALL LIGHT IN REACH.
[2017-04-19] VITALS: BP 129/58
[2017-04-19 04:00] VITALS: BP 103/55
[2017-04-19 06:44] LABS: APTT 38.1 SECONDS (22.8-39.4); INR 1.11 (0.85-1.17); PROTIME 14.1 SECONDS (11.6-15.0)
[2017-04-19 07:06] LABS: ANION GAP 22.7 mmol/L (8-16); CALCIUM 9.2 mg/dL (8.5-10.1); CREATININE - SERUM 10.1 mg/dL (0.6-1.3); PHOSPHOROUS 7.9 mg/dL (2.5-4.9)
[2017-04-19 07:07] LABS: POTASSIUM - SERUM 4.7 mmol/L (3.5-5.1)
--- NOTE | 2017-04-19 07:30 | NUR ---
REPORT RECIEVED. RR EVEN AND UNLABORED. PTS FACE HAS SWOLLEN APPEARNCE. ASSESSMENT PERFORMED. PT DENIES NEEDS AT THIS TIME. INTRODUCED SELF AND PLACED NAME ON WHITE BOARD. WILL CTM.
[2017-04-19 08:00] VITALS: BP 131/54
[2017-04-19 08:08] LABS: BASOPHILS 0.1 % (0-2); EOSINOPHILS 3.9 % (0-7); HEMATOCRIT 31.5 % (36.0-48.0); HEMOGLOBIN 9.8 g/dL (12-16); IMMATURE GRANULOCYTES 0.1 % (0-5); MCH 28.9 pg (26.0-34.0); MCHC 31.1 g/dL (31.0-37.0); MCV 92.9 fL (80.0-100.0); MEAN PLATELET VOLUME 9.4 fL (7.4-10.4); NEUTROPHILS 75.9 % (40-80); PLATELET COUNT 330 10x3/uL (130-400); RBC 3.39 10x6/uL (4.00-5.40); RDW 15.9 % (11.5-14.5)
--- NOTE | 2017-04-19 13:38 | NUR ---
PRE-OP COMPLETED ORDERED. PT LEAVING UNIT NOW FOR PROCEDURE. NO FURTHER NEEDS. WILL CPOC.
--- NOTE | 2017-04-19 15:19 | NUR ---
PT RECIEVED TO ROOM FROM PROCEDURE. RR EVEN AND UNLABORED, PT ALERT AND AWAKE. VSS, PT PLACED ON FREQUENT VS. BED IN LOWEST POSTION, CALL LEWIS IN REACH, OPERATIVE SITE CDI. WILL CTM.
[2017-04-19 19:00] VITALS: BP 136/63
--- NOTE | 2017-04-19 19:36 | NUR ---
PT RESTING IN BED. ASSITANCE GIVEN TO HELP MAKE A CALL TO SON. PT HAS NO S/S OF DISTRESS. DENIES ANY PAIN. REPOSITONED PT IN BED. BED LOW AND CALL LIGHT WITHIN REACH. WILL CPOC
--- NOTE | 2017-04-19 23:40 | NUR ---
PT ASSISTED ONTO BEDPAIN. A MODERATE AMOUNT OF BM, FIRM BROWN. PADS CHANGED AND PT WIPED DOWN. LOTION APPLIED TO BACK. PULLED PT UP IN BED AND REPOSITONED PT DENIES ANY NEEDS AT THIS TIME. NO S/S OF DISTRESS. WILL CPOC
[2017-04-20] VITALS: BP 123/62
--- NOTE | 2017-04-20 00:02 | NUR ---
PT YELLING OUT IN PAIN. LEFT LEG PAIN SHARP 04/01. STATES SHE WANT TO HAVE THE DOC CUT IT OFF AND GET IT OVER WITH. SHE SAID THE DOCTOR SPOKE ABOUT REMOVING IT BUT WANTS TO WAIT. PT CONSTANTLY SAYING OUT LOUD " LORD HELP ME... LORD PLEASE HELP ME FATHER..." PT HAS NO S/S OF DISTRESS. NO OTHER NEEDS. WILL CPOC
[2017-04-20 04:00] VITALS: BP 88/41
--- NOTE | 2017-04-20 06:38 | NUR ---
PT RESTING IN BED. WANTS TO GO HOME TODAY. PT STATES SHE FEEL GREAT TODAY. FEELS BETTER THAN SHE HAS IN A LONG TIME. SAYS SHE FEELS LIKE SHE COULD DANCE. PT DENIES ANY NEEDS. NO S/S OF DISTRESS. WILL CPOC
--- NOTE | 2017-04-20 07:00 | NUR ---
RECEIVED REPORT. ASSUMED CARE OF PATIENT. RESTING WITH EYES OPEN. DENIES NEEDS. NO DISTRESS. RESP EVEN AND UNLAOBRED. PATIENT STATES SHE IS GOING HOME TODAY. CALL LIGHT WITHIN REACH.
--- NOTE | 2017-04-20 09:08 | NUR ---
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 Yes 0 * How many steps to enter\exit or inside your home? NONE 0 * PCP [facility] 0 * Pharmacy [facility] 0 * Preadmission Environment Information Technology Consultant Assisted 0 * [facility] * ADLs Partial Dependent 0 * Partial ADLs (Assistance needed) Bathing Medication Management Transfers 0 * Equipment Wheelchair 0 * Other Equipment ALL MEDICAL EQUIPMENT PROVIDED BY FACILITY 0 * List name and contact numbers for known caregivers / representatives who currently or will assist patient after discharge: EDWIN BETTS, SON, 0 * Community resources currently utilized None 0 * Please name any agencies selected above. NONE 0 * Additional services required to return to the preadmission environment? No 0 * Can the patient safely return to the preadmission environment? Yes 0 * Has this patient been hospitalized within the prior 30 days at any hospital? No [address] DUGGAN WHO WILL DISCHARGE PT WHO CAN LEAVE AFTER SHORT DILYSIS RUN AND REMOVAL OF TRIALYSIS CATH. CM MET WITH PT IN ROOM TO DISCUSS DISCHARGE PLANNING AND NEEDS. PT REPORTS LIVING AT [facility] IN [place] FOR THE PAST 8 YEARS. PT CANNOT WALK AND USES WHEELCHAIR FOR AMBULATATION, REQUIRES ASSISTANCE FOR TRANSFERS. PT ATTENDS OUTPATIENT DIALYSIS, [facility], MWF, 0700, [facility]. PT DENIES DISCHARGE NEEDS, REPORTS SHE WILL RETURN TO THE [facility] AND ASKED THAT CM CALL THE [facility] TO ARRANGE VAN COATING MACHINE OPERATOR AND TO CALL HER SON, EDWIN TO NOTIFY HIM THAT PT IS GOING HOME TODAY. IMPORTANT MESSAGE FROM MEDICARE PROVIDED AND EXPLAINED. CM CALLED EDWIN, , NOTIFIED OF DISCHARGE LATER TODAY BACK TO [facility]. CM CALLED [facility], , SPOKE TO AJ AND NOTIFIED OF DISCHARGE TODAY, VAN SCHEDULED FOR 1300 TODAY. PT NOTIFIED. CM FAXED REFERRAL INFORMATION TO [facility] AT [phone]. CM CALLED DIALYSIS UNIT, SPOKE TO TODD WHO WAS NOT AWARE OF DIALYSIS ORDERS OR OF PT'S PLANNED DISCHARGE TODAY. CM ADVISED TODD WHO WILL CALL TO NOTIFY WHAT TIME THEY CAN ACCOMODATE PT'S DIALYSIS TODAY. FOR DISCHARGE TODAY, FAX DISCHARGE INFORMATION TO [facility], . NURSE REPORT TO BE CALLED TO [facility] AT [phone]. [facility] TO COATING MACHINE OPERATOR PT AT 1300 HOURS TODAY. Flaking Roll Operator: Roger Ramos
--- NOTE | 2017-04-20 09:30 | NUR ---
WOUND CARE NURSE AT BEDSIDE DOING DRESSING CHANGES TO BILATERAL LOWER EXTREMITIES. NO DISTRESS.
--- NOTE | 2017-04-20 10:07 | NUR ---
Wound care consult: Pt has open chronic wound on left lateral calf measuring 11cm x 7cm x 0.5cm The wound has irregular margins. Drainage has no odor and is greenish in color and a moderate amount is noted. Wound bed is lee, pink, green and brown and is chiqui in appearance. Pt c/o severe pain. Just below this wound is another smaller open area measuring 4cm x 3cm x 0.3cm with same description as above. On right posterior lower leg (achilles area) is an open chronic wound measuring 9cm x 4cm x 0.5cm. The wound bed is pink and smooth. Wound edges are calloused. Noted greenish/yellow drainage from this wound. Cleansed all wounds with wound spinneret cleaner and patted dry. Applied zinc paste around edges and covered wound beds with adaptic. Placed Maxorb extra AG over adaptic and covered with non-adherent gauze, 4x4s and secured with kerlix. Pt c/o pain whenever wounds on left leg were touched. Wound care will continue monitoring..
--- NOTE | 2017-04-20 10:36 | NUR ---
PATIENT LEFT VIA BED TO DIALYSIS AT THIS TIME. NO DISTRESS UPON LEAVING UNIT.
--- NOTE | 2017-04-20 14:34 | NUR ---
Patient Name: JAZMYN DILLON Encounter No: [id number] : 1935 Primary Insurance: MEDICARE A & B Anticipated DC Date: 04-20-2017 Planned Disposition: Nursing Facility [facility] Cert External Planned Provider: [facility], [employer]ED INSPECTION SUPERVISOR CARE MEDICAID BED DCP follow-up note: FAXED DISCHARGE INFORMATION TO [facility], . NURSE REPORT TO BE CALLED TO [facility] AT [phone]. CARE HOME VAN TO STOCKBROKING DEALER PT SOON SHE IS READY TO GO. Dispensary Clerk: Roger Ramos
--- NOTE | 2017-04-20 14:58 | NUR ---
1425 PATIENT RETURNED TO UNIT FROM DIALYSIS VIA BED IN NO DISTRESS. 1440 TRIALYSIS REMOVED AT 1428 AND PRESSURE HELD UNITL 1440. NO BLEEDING TO SITE. SITE CLEANSED. 4X4 GAUZE APPLIED AND SECURED WITH CLEAR TEGADERM. 1445 PATIENT MEDICATED WITH NORCO FOR PAIN. PHYSICAL THERAPY ASSISTED PATIENT INTO WHEELCHAIR PATIENT IS DISCHARGING BACK TO [facility]. DISCHARGE INSTRUCTIONS PROVIDED TO PATIENT AND [facility] APPLICATIONS SALES REPRESENTATIVE. INCLUDED IN DISCHARGE INSTRUCTIONS IS THE PRESCRIPTION FOR NORCO . 1455 PATIENT LEFT UNIT VIA WHEELCHAIR IN NO ACUTE DISTRESS WITH ALL PERSONAL BELONGINGS. 1455 SPOKE WITH LAURE AT [facility]. REPORT GIVEN.
== END 2017-04-20 15:00 | DRG 252 ==
LOC: D.M2 15:33
PROVIDERS: General Practice; ADMIT Internal Medicine Nephrology
PROC: 02HV33Z Insertion of Infusion Device into Superior Vena Cava, Percutaneous Approach (ICD-10-PCS; principal; 2017-04-14)
PROC: 03773ZZ Dilation of Right Brachial Artery, Percutaneous Approach (ICD-10-PCS; 2017-04-19)
PROC: B5161ZZ Fluoroscopy of Right Subclavian Vein using Low Osmolar Contrast (ICD-10-PCS; 2017-04-19)
DX: T82.590A Other mechanical complication of surgically created arteriovenous fistula, initial encounter (principal); N18.6 End stage renal disease; I13.2 Hypertensive heart and chronic kidney disease with heart failure and with stage 5 chronic kidney disease, or end stage renal disease; Y83.8 Other surgical procedures as the cause of abnormal reaction of the patient, or of later complication, without mention of misadventure at the time of the procedure; E11.22 Type 2 diabetes mellitus with diabetic chronic kidney disease; I50.9 Heart failure, unspecified; Z99.2 Dependence on renal dialysis; E87.5 Hyperkalemia; J44.9 Chronic obstructive pulmonary disease, unspecified; D63.1 Anemia in chronic kidney disease; I48.91 Unspecified atrial fibrillation